=== PATIENT | female | born 1965 | race Caucasian/White ===

== ENCOUNTER 2018-01-15 19:37 | Emergency (ER) | payer OTHER, MEDICAID ==
[~2018-01-15] VITALS: Ht 165.1 cm; Wt 68.0 kg
[2018-01-15] MEDS ORDERED: LISINOPRIL10 MG (19:52)
[2018-01-15 20:13] VITALS: BP 177/140
== END 2018-01-15 20:17 | disposition home or self-care (01) ==
LOC: M.ERS 19:37
DX: S00.83XA Contusion of other part of head, initial encounter (principal); I10 Essential (primary) hypertension; W22.8XXA Striking against or struck by other objects, initial encounter; Y93.89 Activity, other specified; Y92.89 Other specified places as the place of occurrence of the external cause; Y99.8 Other external cause status